=== PATIENT | female | born 1970 | race Caucasian/White ===

== ENCOUNTER → 2020-07-20 | Outpatient (CLI) | payer BC, OTHER ==
--- NOTE | 2020-07-20 16:39 | Diagnostic Imaging Report ---
INDICATION: Right knee pain AP, oblique, and lateral views of the right knee are obtained. No fracture or acute bony abnormality is seen. Joint spaces are unremarkable. There is no joint effusion. IMPRESSION: Negative right knee. Dictated by: Dictated on workstation # [id number]
--- NOTE | 2020-07-20 16:39 | Diagnostic Imaging Report ---
INDICATION: Right elbow pain. EXAMINATION: AP, oblique and lateral views of the right elbow were obtained. FINDINGS: No fracture or acute bony abnormality is seen. Joint spaces appear unremarkable. There is no joint effusion. IMPRESSION: Negative right elbow. Dictated by: Dictated on workstation # [id number]
== END ==
LOC: RAD FS 15:01
PROVIDERS: ATTEND Nurse Practitioner
DX: M25.521 Pain in right elbow (principal); M25.561 Pain in right knee
CPT/HCPCS: 73080; 73562